=== PATIENT | female | born 1990 | race African-American/Black ===

== ENCOUNTER 2018-08-13 04:57 | Emergency (ER) | payer MEDICAID ==
[~2018-08-13] VITALS: Ht 157.5 cm; Wt 86.0 kg
[2018-08-13 05:04] VITALS: BP 142/99
== END 2018-08-13 09:34 | disposition left against medical advice (07) ==
LOC: ER 04:57
DX: R45.851 Suicidal ideations (principal); Z53.21 Procedure and treatment not carried out due to patient leaving prior to being seen by health care provider